=== PATIENT | female | born 1990 | race American Indian/Alaskan Native ===

== ENCOUNTER 2017-07-29 06:14 | Emergency (ER) | payer OTHER ==
--- NOTE | 2017-07-29 06:56 | EDM.PDOCBH ---
ED HPI GENERAL MEDICAL PROBLEM - General Chief Complaint: Behavioral/Psych Stated Complaint: POSSIBLE MISCARRAIGE [id number] Time Seen by Provider: 07/29/17 06:30 Source of Information: Reports: Patient History Limitations: Reports: Altered Mental Status (hyperventalating ) - History of Present Illness INITIAL COMMENTS - FREE TEXT/NARRATIVE: ED via w/c. patient brought" by c/o feeling something wrong, hands feel funny. Started while sitting in car. Onset: Today ED ROS GENERAL - Review of Systems Review Of Systems: ROS reveals no pertinent complaints other than HPI. ED EXAM, BEHAVIORAL HEALTH - Physical Exam Exam: See Below Exam Limited By: No Limitations General Appearance: Alert, Anxious (hyperventilating), Moderate Distress Eye Exam: Bilateral Eye: EOMI Ears: Normal External Exam Throat/Mouth: Normal Inspection Neck: Full Range of Motion Respiratory/Chest: No Respiratory Distress, Lungs Clear Cardiovascular: Regular Rate, Rhythm, Tachycardia Back Exam: Full Range of Motion Extremities: Other (carpal pedal spasm ) Neurological: Inattentive Psychiatric: Alert, Restless, Tearful, Other (anxious, hyperventilating ) Skin Exam: Warm, Dry, Normal color COURSE, BEHAVIORAL HEALTH COMP - Course Vital Signs: Last Vital Signs Temp 98.8 F 07/29/17 06:26 Pulse 115 H 07/29/17 06:26 Resp 31 H 07/29/17 06:26 BP 109/72 07/29/17 06:26 Pulse Ox 100 07/29/17 06:26 Re-Assessment/Re-Exam: Patient refused lab studies. States she is feeling better now. Admits a few drinks tonight. Denied other drug use. Good eye contact with discussion of ETOH use and amount, became quiet and avoidant when questioned if any drug use. Patient is calmer now. Basic education on anxiety and panic attacks provided. Continued to refuse studies. Wondering if still here "hoping he didn't leave" Patient infoemed it appeared he did leave as vehicle not in immediate parking area. Pat stated " well that sucks" then stated they are in process of divorce. Requested phone so she could contact mother to get an aunt that lives in area to come and get her. Refusal of service form signed. Departure - Departure Time of Disposition: 06:56 Disposition: Home, Self-Care 01 Condition: Good Clinical Impression: Panic attack, Hyperventilation syndrome - Discharge Information Instructions: Hyperventilation, Panic Attacks, [id number] Forms: ED Department Discharge Additional Instructions: Follow up with primary care clinic or counseling for panic and anxiety rest avoid caffeine and other stimulants for 24 hours
== END 2017-07-29 06:32 | disposition home or self-care (01) ==
LOC: DL.ED 06:14
DX: F45.8 Other somatoform disorders (principal); F41.0 Panic disorder [episodic paroxysmal anxiety]
CPT/HCPCS: 99282; 99283